=== PATIENT | female | born 2000 | race African-American/Black ===

== ENCOUNTER 2024-08-14 01:16 | Day surgery (SDC) | payer OTHER, MEDICAID, SELFPAY ==
[2024-08-05 15:11] VITALS: BMI 48.0
--- NOTE | 2024-08-05 15:26 | PC.NURSE ---
Report to the Outpatient Waiting Room, entrance under the green pavilion located off [facility], at time _0830AM on date __08/14/24 . Planned Procedure Time: _1030AM .? Time changes happen often and if your time is changed the preop area will call you the afternoon before. - You and your visitor will be asked to self-screen and do not enter if you have any COVID symptoms. Please call surgeon if you need to reschedule. - A mask is optional within the hospital at this time. NOTHING TO EAT OR DRINK FOR 8 HR PRIOR TO SURGERY -No smoking, or chewing tobacco (or any form of nicotine). No chewing gum, candy or mints. Take only the following medications with a SIP of water on the morning of surgery: _NONE DO NOT STOP ANY OF YOUR OTHER PRESCRIPTION MEDICATIONS PRIOR TO SURGERY EXCEPT THE FOLLOWING Hold all vitamins and supplements for 3 days per anesthesiologist. Medications to discontinue per physician VIT D Date to take last dose__08/11/24 Please no make-up, nail latvian, hairspray, perfume, deodorant, or body powder the day of surgery.? No jewelry (including any body piercings) or valuables the day of surgery, leave them at home.? Please take a shower or bath the night before, or the morning of, surgery with an antibacterial soap.? Wear comfortable, loose fitting clothing.? - Jewelry must be removed prior to entering the operating room.? Rings and piercings that are not removed may be cut off. - The hospital will not accept responsibility for valuables.? - Please leave all valuables, including medications, at home the day of surgery. If you are going home after surgery, a licensed [employer] hazmat company driver must drive you home.? - NO public transportation without another adult if you receive anesthesia. - We recommend that an adult stay with you for 24 hours following discharge. - We also recommend that you do not drive, make important decision, drink alcoholic beverages, or take any drugs that were not prescribed by your health care provider for at least 24 hours after your discharge time. Follow any additional instructions given to you from your surgeon. Telephone instructions given to __TARSHA and asked if any additional questions and then verbalized understanding. Patient advised to call surgeon office or pre surgery nurse liaison [phone] if any additional questions.
[2024-08-14] VITALS (14 sets, daily range): BP systolic 131–157; BP diastolic 71–116; PULSE 86–104; RESP 13–27; TEMP 36.2–36.7; O2SAT 94–100
--- OUTSIDE RECORDS SUMMARY | 2024-08-14 01:21 | XMS_ITS | Referral Summary ---
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 Gender Identity Not on file Sexual Orientation Not on file Last Filed Vital Signs Vital Sign Reading Time Taken Comments Blood Pressure 120/60 11/23/2018 3:21 PM CDT Pulse 85 11/23/2018 3:21 PM CDT Temperature 36.3 C (97.4 F) 11/23/2018 3:21 PM CDT Respiratory Rate - - Oxygen Saturation 98% 11/23/2018 3:21 PM CDT Inhaled Oxygen Concentration - - Weight 108.9 kg (240 lb) 11/23/2018 3:21 PM CDT Height 160 cm (5' 3) 11/23/2018 3:21 PM CDT Body Mass Index 42.51 11/23/2018 3:21 PM CDT Plan of Treatment Not on file Insurance [facility] CHOICE [facility]US [facility] H[facility]PPO Address: [address] [address] Care Teams Paper Sample Clerk Relationship Specialty Start Date End Date Efren Baugh DO [address] [place] [address] PCP - General Family Medicine 07/23/24 Alonso [place] MD [address] [place] [address] Water Chemist Obstetrics and Gynecology 07/23/24
--- OUTSIDE RECORDS SUMMARY | 2024-08-14 01:21 | XMS_ITS | Clinical Summary ---
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 Gender Identity Not on file Sexual Orientation Not on file Plan of Treatment Health Maintenance Due Date Last Done Comments Hepatitis C Virus (HCV) Screening 1998 Human Papillomavirus (HPV) Immunization (2 - 2-dose series) 04/15/2010 10/13/2009 Pap Smear 2019 Influenza Immunization (#1) 2023 02/06/2020 SARS-COV-2 Immunization ( season) 2023 Respiratory Syncytial Virus (RSV) Immunization (Adult) (1 - 1-dose 75+ series) 2073 Hepatitis B Immunization Completed 999, 1998, 1998 DTaP/Tdap/Td Immunization Discontinued 2010, 10/13/2009, 10/15/2003, Additional history exists TdaP Immunization Completed 10/14/2010, 10/13/2009 Meningococcal Immunization (ACWY) Completed 10/08/2015, 10/14/2010, 10/13/2009 Pneumococcal Immunization Combined Aged Out No longer eligible based on patient's age to complete this topic Rotavirus Immunization Aged Out No lo nger eligible based on patient's age to complete this topic
--- OUTSIDE RECORDS SUMMARY | 2024-08-14 01:21 | XMS_ITS | Clinical Summary ---
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 Gender Identity Not on file Sexual Orientation [...] 11/23/2018 3:21 PM CDT Plan of Treatment Health Maintenance Due Date Last Done Comments Cervical Cancer Screening 1998 Depression Screening 1998 Hepatitis C Screening 1998 DTaP/Tdap/Td Vaccine (1 - Tdap) 2009 Varicella Vaccines (1 of 2 - 13+ 2-dose series) 2011 HPV Vaccines (1 - 3-dose series) 2013 Hepatitis B Screening 2016 Regular Well Visit/Exam 18-64 2016 Influenza Vaccine (Season Ended) 2024 Pneumococcal vaccine <65 Aged Out No longer eligible based on patient's age to complete this topic Insurance [facility] CHOICE PLUS Care Teams Optimization Manager Relationship Specialty Start Date End Date AmauriEfren DO Mo [address] [place] [address] PCP - General Family Medicine 07/23/24 Alonso [place] MD [address] [place] [address] Environmental Services Attendant Obstetrics and Gynecology 07/23/24
--- OUTSIDE RECORDS SUMMARY | 2024-08-14 01:21 | XMS_ITS | Data Portability ---
Author Organization [facility] SILaila Newby Address [address] [place] [address] Assessment No assessment recorded. Plan of Treatment Reminders Order Date Submit Date Provider Last Modified By Organization Details Last Modified Time Details Appointments None recorded. Lab CMP, serum or plasma 017 [facility], [address] [place] [address], [address], [place], [address], 7 12:20:27 thyroid panel, serum 017 [facility], [address] [facility], [address], [place], [address], 7 08:29:57 HbA1c (hemoglob in A1c), blood 017 [facility], [address] [place] [address], [address], [place], [address], 7 08:29:57 CBC w/ auto diff 017 [facility], [address] [place] [address], [address], [place], [address], 7 12:21:49 lipid panel, serum 017 [facility], [address] [place] [address], [address], [place], [address], 7 08:29:56 Referral None recorded. Procedures None recorded. Surgeries None recorded. Imaging None recorded. Medication Orders None recorded. Patient TargetsNo targets recorded. Patient Instructions Encounter Date Encounter Id Patient Instructions Last Modified By Organization Details Last Modified Time 04/24/2015 [id number] Routine sports physical, no restrictions or limitations. Discussed diet and exercise. Not available 04/24/2015 16:40:07 10/08/2015 [id number] Provided MCV4 vaccine. [email or web address] Not av ailable 10/08/2015 15:12:55 07/13/2016 [id number] when your child IS overweight: care instructions efarinas Not available 07/13/2016 11:01:37 your child WHO I S overweight: care instructions efarinas Not available 07/13/2016 11:01:[address] scan of the abdomen, I discussed with patient and her mother that she needs to see lead painter for further evaluation. Plan to refer patient to GE specialist of choice. Diet modicication and exercise advised. efarinas Not available 07/13/2016 11:02:19 Reason for Referral None Reported. Results Created Date Observation Date Name Description Value Unit Range Abnormal Flag Note LastModifiedBy Organization Detail LastModifiedTime 07/19/19 17 07/19/2016 CBC w/ auto diff WBC 9.5 x10e3 /uL 3.4-10 .8 Not Available [facility] ([facility]) [address] [facility], [place], [address], 07/19/2016 08:29:55 07/19/1907/19/2016 CBC w/ auto diff RBC 4.37 x10e6 /uL 3.77-5 .28 Not Available [facility] ([facility]) [address] [facility], [place], [address], 07/19/2016 08:29:55 07/19/1907/19/2016 CBC w/ auto diff hemoglobin 11.5 g/dL 11.1-1 5.9 Not Available [facility] ([facility]) [address] [place], [address], 07/19/2016 08:29:55 07/19/19 17 07/19/2016 CBC w/ auto diff hematocrit 36.7 % 34.0-4 6.6 Not Available [facility] ([facility]) [address] [place], [address], 07/19/2016 08:29:55 07/19/19 17 07/19/2016 CBC w/ auto diff MCV 84 fL 79-97 Not Available [facility] ([facility]) [address] [place], [address], 07/19/2016 08:29:55 07/19/19 17 07/19/2016 CBC w/ auto diff MCH 26.3 pg 26.6-3 3.0 below low normal Not Available [facility] ([facility]) [address] [facility], [place], [address], 07/19/2016 08:29:55 07/19/19 17 07/19/2016 CBC w/ auto diff MCHC 31.3 g/dL 31.5-3 5.7 below low normal Not Available [facility] ([facility]) [address] [place], [address], 07/19/2016 08:29:55 07/19/19 17 07/19/2016 CBC w/ auto diff RDW 13.9 % 12.3-1 5.4 Not Available [facility] ([facility]) [address] [place], [address], 07/19/2016 08:29:55 07/19/19 17 07/19/2016 CBC w/ auto diff platelets 335 x10e3 /uL 150-37 9 Not Available [facility] ([facility]) [address] [place], [address], 07/19/2016 08:29:55 07/19/19 17 07/19/2016 CBC w/ auto diff neutrophils 53 % Not Available [facility] [address] [place], [address], 07/19/2016 08:29:55 07/19/19 17 07/19/2016 CBC w/ auto diff lymphs 35 % Not Available [facility] ([facility]) [address] [place], [address], 07/19/2016 08:29:55 07/19/19 17 07/19/2016 CBC w/ auto diff monocytes 10 % Not Available [facility] ([facility]) [address] [place], [address], 07/19/2016 08:29:55 07/19/19 17 07/19/2016 CBC w/ auto diff eos 2 % Not Available [facility] ([facility]) [address] [place], [address], 07/19/2016 08:29:55 07/19/19 17 07/19/2016 CBC w/ auto diff basos 0 % Not Available [facility] ([facility]) [address] [place], [address], 07/19/2016 08:29:55 07/19/19 17 07/19/2016 CBC w/ auto diff immature cells RETAIL GREETER Not Available [facility] [address] [place], [address], 07/19/2016 08:29:55 07/19/19 17 07/19/2016 CBC w/ auto diff neutrophils (absolute) 5.0 x10e3 /uL 1.4-7. 0 Not Available [facility] ([facility]) [address] [place], [address], 07/19/2016 08:29:55 07/19/19 17 07/19/2016 CBC w/ auto diff lymphs (absolute) 3.3 x10e3 /uL 0.7-3. 1 above high normal Not Available [facility] ([facility]) [address] [place], [address], 07/19/2016 08:29:55 07/19/19 17 07/19/2016 CBC w/ auto diff monocytes(ab solute) 0.9 x10e3 /uL 0.1-0. 9 Not Available [facility] ([facility]) [address] [place], [address], 07/19/2016 08:29:55 07/19/19 17 07/19/2016 CBC w/ auto diff eos (absolute) 0.2 x10e3 /uL 0.0-0. 4 Not Available [facility] ([facility]) [address] [facility], [place], [address], 07/19/2016 08:29:55 07/19/19 17 07/19/2016 CBC w/ auto diff baso (absolute) 0.0 x10e3 /uL 0.0-0. 2 Not Available [facility] ([facility]) [address] [facility], [place], [address], 07/19/2016 08:29:55 07/19/19 17 07/19/2016 CBC w/ auto diff immature granulocytes 0 % Not Available [facility] [address] [place], [address], 07/19/2016 08:29:55 07/19/19 17 07/19/2016 CBC w/ auto diff immature grans (abs) 0.0 x10e3 /uL 0.0-0. 1 Not Available [facility] ([facility]) [address] [place], [address], 07/19/2016 08:29:55 07/19/19 17 07/19/2016 CBC w/ auto diff NRBC RETAIL GREETER Not Available [facility] ([facility]) [address] [place], [address], 07/19/2016 08:29:55 07/19/19 17 07/19/2016 CBC w/ auto diff hematology comments: RETAIL GREETER Not Available [facility] ([facility] [address] [place], [address], 07/19/2016 08:29:55 07/19/19 17 07/19/2016 CMP, serum or plasm a glucose, serum 79 mg/dL 65-99 Not Available [facility] [address] [place], [address], 07/19/2016 08:29:56 07/19/19 17 07/19/2016 CMP, serum or plasm a BUN 11 mg/dL 6-20 Not Available [facility] ([facility]) [address] [place], [address], 07/19/2016 08:29:56 07/19/19 17 07/19/2016 CMP, serum or plasm a creatinine, serum 0.72 mg/dL 0.57-1 .00 Not Available [facility] ([facility]) [address] [place], [address], 07/19/2016 08:29:56 07/19/19 17 07/19/2016 CMP, serum or plasm a eGFR if nonafricn AM 123 mL/mi n/1.7 3 >59 Not Available [facility] ([facility]) [address] [place], [address], 07/19/2016 08:29:56 07/19/19 17 07/19/2016 CMP, serum or plasm a eGFR if africn AM 141 mL/mi n/1.7 3 >59 Not Available [facility] ([facility]) [address] [place], [address], 07/19/2016 08:29:56 07/19/19 17 07/19/2016 CMP, serum or plasm a BUN/creatini ne ratio 15 9-23 Not Available [facility] [address] [place], [address], 07/19/2016 08:29:56 07/19/19 17 07/19/2016 CMP, serum or plasm a sodium, serum 141 mmol/ L 134-14 4 Not Available [facility] [address] [place], [address], 07/19/2016 08:29:56 07/19/1907/19/2016 CMP, serum or plasm a potassium, serum 4.5 mmol/ L 3.5-5. 2 Not Available [facility] ([facility] [address] [place], [address], 07/19/2016 08:29:56 07/19/1907/19/2016 CMP, serum or plasm a chloride, serum 102 mmol/ L 96-106 Not Available [facility] [address] [place], [address], 07/19/2016 08:29:56 07/19/1907/19/2016 CMP, serum or plasm a calcium, serum 9.6 mg/dL 8.7-10 .2 Not Available [facility] ([facility]) [address] [place], [address], 07/19/2016 08:29:56 07/19/1907/19/2016 CMP, serum or plasm a protein, total, serum 7.4 g/dL 6.0-8. 5 Not Available [facility] ([facility] [address] [place], [address], 07/19/2016 08:29:56 07/19/1907/19/2016 CMP, serum or plasm a albumin, serum 4.4 g/dL 3.5-5. 5 Not Available [facility] ([facility]) [address] [place], [address], 07/19/2016 08:29:56 07/19/1907/19/2016 CMP, serum or plasm a globulin, total 3.0 g/dL 1.5-4. 5 Not Available [facility] ([facility]) [address] [place], [address], 07/19/2016 08:29:56 07/19/19 17 07/19/2016 CMP, serum or plasm a A/G ratio 1.5 1.2-2. 2 Not Available [facility] ([facility]) [address] [place], [address], 07/19/2016 08:29:56 07/19/19 17 07/19/2016 CMP, serum or plasm a bilirubin, total <0.2 mg/dL 0.0-1. 2 Not Available [facility] ([facility]) [address] [place], [address], 07/19/2016 08:29:56 07/19/19 17 07/19/2016 CMP, serum or plasm a alkaline phosphatase, S 68 IU/L 43-101 Not Available [facility] [address] [place], [address], 07/19/2016 08:29:56 07/19/19 17 07/19/2016 CMP, serum or plasm a AST (SGOT) 15 IU/L 0-40 Not Available [facility] [address] [place], [address], 07/19/2016 08:29:56 07/19/19 17 07/19/2016 lipid panel , serum cholesterol, total 201 mg/dL 100-16 9 above high normal Not Available [facility] ([facility] [address] [place], [address], 07/19/2016 08:29:56 07/19/19 17 07/19/2016 lipid panel , serum triglyceride s 217 mg/dL 0-89 above high normal Not Available [facility] ([facility]) [address] [place], [address], 07/19/2016 08:29:56 07/19/19 17 07/19/2016 lipid panel , serum HDL cholesterol 49 mg/dL >39 Not Available [facility] [address] [place], [address], 07/19/2016 08:29:56 07/19/19 17 07/19/2016 lipid panel , serum VLDL cholesterol cheryl 43 mg/dL 5-40 above high normal Not Available [facility] ([facility]) [address] [place], [address], 07/19/2016 08:29:56 07/19/19 17 07/19/2016 lipid panel , serum LDL cholesterol calc 109 mg/dL 0-109 Not Available [facility] [address] [place], [address], 07/19/2016 08:29:56 07/19/19 17 07/19/2016 lipid panel , serum comment: RETAIL GREETER Not Available [facility] ([facility]) [address] [place], [address], 07/19/2016 08:29:56 07/19/19 17 07/19/2016 thyro id panel , serum TSH 1.030 uIU/m L 0.450- 4.500 Not Available [facility] ([facility]) [address] [place], [address], 07/19/2016 08:29:57 07/19/19 17 07/19/2016 thyro id panel , serum thyroxine (T4) 7.9 ug/dL 4.5-12 .0 Not Available [facility] ([facility]) [address] [place], [address], 07/19/2016 08:29:57 07/19/19 17 07/19/2016 thyro id panel , serum T3 uptake 31 % 23-35 Not Available [facility] ([facility]) [address] [place], [address], 07/19/2016 08:29:57 07/19/19 17 07/19/2016 thyro id panel , serum free thyroxine index 2.4 1.2-4. 9 Not Available [facility] ([facility]) [address] [facility] [place], [address], 07/19/2016 08:29:57 07/19/19 17 07/19/2016 HbA1c (hemo globi n A1c), blood hemoglobin A1C 5.6 % 4.8-5. 6 PRE-D IABET ES: 5.7 - 6.4 DIABE TYLOR: >6.4 GLYCE MADDISON CONTR OL FOR ADULT S WITH DIABE TYLOR: <7.0 Not Available [facility] ([facility]) [address] [facility], [place], [address], 07/19/2016 08:29:57 05/31/19 17 05/30/2016 imagi ng/reinaldo red tic resul t No observ ation record ed. [facility] [address] [facility], [place], [address], 07/13/2016 10:40:44 Result Notes None recorded. Problems No Known Problems Medical Equipment None Reported. Allergies No known drug allergies Medications Name Sig Start Date Stop Date Status Note LastModified by Organization Details LastModified Time oxybutynin chloride ER 10 mg tablet,exte nded release 24 hr TAKE 1 TABLET BY MOUTH EVERY DAY active Not Available Not Available No t Available dicyclomine 20 mg tablet 07/13 completed Not Available Not Available Not Available albuterol sulfate HFA 90 mcg/actuati on aerosol inhaler TAKE 2 PUFFS BY MOUTH EVERY 6 HOURS NEEDED active Not Available Not Available No t Available ondansetron 4 mg disintegrat ing tablet TAKE 1 TABLET BY MOUTH EVERY 8 HOURS NEEDED FOR NAUSEA active Not Available Not Available No t Available nitrofurant oin monohydrate /macrocryst als 100 mg capsule active Not Available Not Available Not Available ID NOW COVID-19 Test Kit DIRECTED active Not Available Not Available No t Available COVID-19 test specimen collection DIRECTED active Not Available Not Available No t Available Vitals Date Recorded Heart rate Oxygen saturation Oxygen saturation in Arterial blood by Pulse oximetry Body height Body mass index (BMI) Body weight Body temperature Systolic blood pressure Diastolic blood pressure Provider Name and Address Organization Details Last Updated DateTime 6 89 /min 99 % 99 % 161.925 cm 43.1 kg/m2 577054. 44099 g 98.1 [degF] 116 mm[Hg] 70 mm[Hg] Maribel Garza [facility] 6 16:29:15 Date Recorded Systolic blood pressure Diastolic blood pressure Provider Name and Address Organization Details Last Updated DateTime 07/13/2016 122 mm[Hg] 80 mm[Hg] Santosh Dey MD Attn: [facility] [place], [address], [facility] 07/13/2016 10:51:56 Date Recorded Body height Body weight Body mass index (BMI) Heart rate Respiratory rate Body temperature Provider Name and Address Organization Details Last Updated DateTime 7 162.56 cm 637259. 45 g 43.8 kg/m2 96 /min 13 /min 98.5 [degF] Aranza Arias MA [facility] 7 10:26:29 Date Recorded Body height Heart rate Body mass index (BMI) Body weight Body temperature Systolic blood pressure Diastolic blood pressure Provider Name and Address Organization Details Last Updated DateTime 6 162.56 cm 82 /min 43.4 kg/m2 705234. 983914 g 98 [degF] 108 mm[Hg] 78 mm[Hg] Tatiana Chávez MA [facility] 6 14:51:17 Social History Question Answer Notes LastModified by Organizat ion Details LastModified Time Tobacco Smoking Status Never Smoker Maribel ware, [facility] 04/24/2015 16:29:15 Animal Exposure? Yes Information not available 07/13/2016 What Is Your Level Of Caffeine Consumption? Moderate Information not available 07/13/2016 What Type Of Diet Are You Following? REGULAR Information not available 07/13/2016 Have There Been Any Changes To Your Family Or Social Situation? No Information not available 07/13/2016 Are There Any Guns Present In Your Home? No Information not available 07/13/2016 What Is Your Home Situation? Both Parents Information not available 07/13/2016 Car Seat Type Or Seat Belt? Seat Belt Information not available 07/13/2016 Parent Involvement? Both Parents Involved Information not available 07/13/2016 What Is Your Parents' Marital Status? Information not available 07/13/2016 Do You Have Any Siblings? 4 Information not available 07/13/2016 Do You Have Smoke And Carbon Monoxide Detectors In Your Home? Yes Information not available 07/13/2016 Are You Passively Exposed To Smoke? No Information not available 07/13/2016 Sex: Unknown Functional Status None recorded. Mental Status None recorded. Family History Relationship Description Onset Age of this Age Resolved Age Notes LastModified by Organization Details LastModified Time Maternal Grandfather Hypertensive disorder Not available 2016 10:27:52 Maternal Grandfather Diabetes mellitus Not available 2016 10:28:05 Medical History Condition Response Blood Diseases N Ear or Hearing Problems N Thyroid Problems N Depression N Developmental or Behavioral Disorders N Skin Problems N Premature N Anemia N Constipation N Diabetes N Anxiety Disorder N Muscle, Joint, or Bone Problems N Bedwetting N Vision or Eye Problems N Seizures/Epilepsy N Heart Problems/Murmur N Head Injury/Concussion N Cancer N Allergies N Asthma N ADHD N Bladder or Kidney Problems N Headaches N Chicken Pox N Autism Spectrum Disorder (ASD) N Gynecological History Statement/Question Response LMP Obstetrics History GPAL:G 0 P 0 0 0 0 Immunizations Vaccine Type Date Status Note Provider Nam e and Address Organization Details Recorded Time meningococcal MCV4P 6 completed Not Available [facility] 03/16/2019 02:50:26 DTP 4 completed Not Available [facility] 10/21/2020 10:14:25 DTP 9 completed Not Available [facility] 10/21/2020 10:14:25 DTP 2 completed Not Available [facility] 10/21/2020 10:14:25 DTP 9 completed Not Available [facility] 10/21/2020 10:14:24 DTP 0 completed Not Available [facility] 10/21/2020 10:14:25 Hib, unspecified formulation 9 completed Not Available [facility] 10/21/2020 10:14:25 Hib, unspecified formulation 9 completed Not Available [facility] 10/21/2020 10:14:25 Hib, unspecified formulation 0 completed Not Available [facility] 10/21/2020 10:14:25 Hep A, ped/adol, 2 dose 9 completed Not Available [facility] 10/21/2020 10:14:25 Hep A, ped/adol, 2 dose 8 completed Not Available [facility] 10/21/2020 10:14:25 Hep B, unspecified formulation 9 completed Not Available [facility] 10/21/2020 10:14:25 Hep B, unspecified formulation 9 completed Not Available [facility] 10/21/2020 10:14:25 Hep B, unspecified formulation 9 completed Not Available [facility] 10/21/2020 10:14:25 HPV, unspecified formulation 0 completed Not Available [facility] 10/21/2020 10:14:25 MMR 4 completed Not Available [facility] 10/21/2020 10:14:25 MMR 0 completed Not Available [facility] 10/21/2020 10:14:25 polio, unspecified formulation 9 completed Not Available [facility] 10/21/2020 10:14:25 polio, unspecified formulation 4 completed Not Available [facility] 10/21/2020 10:14:25 polio, unspecified formulation 9 completed Not Available [facility] 10/21/2020 10:14:25 polio, unspecified formulation 0 completed Not Available [facility] 10/21/2020 10:14:25 varicella 8 completed Not Available [facility] 10/21/2020 10:14:25 varicella 0 completed Not Available [facility] 10/21/2020 10:14:25 Tdap 0 completed Not Available [facility] 10/21/2020 10:14:24 Tdap 1 completed Not Available [facility] 10/21/2020 10:14:25 meningococcal ACWY, unspecified formulation 1 completed Not Available [facility] 10/21/2020 10:14:25 meningococcal ACWY, unspecified formulation 0 completed Not Available [facility] 10/21/2020 10:14:25 Past Encounters Encounter ID Performer Location Encounter Start Date Encounter Closed Date Diagnosis/Indication Diagnosis SNOMED-CT Code Diagnosis ICD10 Code Diagnosis Note [id number] Myles Nugent PA-C [facility] [address] [place] [address] 04/24/2015 16:18:17 04/24/2015 16:40:35 History and physical examination, sports participation 253233744 Z02.5 [id number] Myles Nugent PA-C [facility] [address] [place] [address] 10/08/2015 14:39:54 10/08/2015 15:45:16 Active or passive immunization 260353635 Z23 [id number] Santosh Dey MD [facility] [address] [place] [address] 07/13/2016 10:13:24 07/29/2016 17:01:37 Laboratory test result abnormal 418967879 R89.9 Morbid obesity 085642486 E66.01 Advised dietary management and exercise. Health Concerns Section Related Observation LastModified by Organization Detai ls LastModified Time None Recorded Concern Status LastModified by Organization Details LastModified Time None Recorded Advance Directives Directive None Recorded Payers Insurance Date Sequence Insurance Name Policy Number Policy Liu Covered Member ID Liu Member ID Guarantor Name 10/16/2020 2 [facility] ON OR AFTER 08/27/20 (MEDICAID REPLACEMENT - HMO) Taylor Angelo [id number] Tracie Garibay 10/16/2020 1 [facility] PRIOR TO 08/27/2020 (MEDICAID REPLACEMENT - HMO) Taylor Angelo [id number] Tracie Garbiay Notes Date Note Type Note Provider Name and Address Organization Details Recorded Time 04/24/2015 text/html Sports physical. Myles rojas PA-C Attn: [facility] [place], [address], [facility] 04/24/2015 16:40:20 10/08/2015 text/html Visit for MCV4 vaccine. Myles Nugent PA-C Attn: [address] [place], [address], [facility] 10/08/2015 16:09:39 07/13/2016 text/html Here for follow up of abdominal pain (no longer present this visit). CT scan of the abdomen shows some abnormal findings. Santosh Dey MD Attn: [address] [place], [address], [facility] 07/13/2016 11:08:35 OBGyn Episode No OBEpisode recorded.
[2024-08-14] MEDS: LACTATED RINGERS 1,000 ML 30 ML IV CONT ×2 (06:45→10:54)
--- NOTE | 2024-08-14 06:48 | WPDHPUPDATE1 ---
History and Physical Update Update Date/Time: 08/14/24 06:48 Patient seen and examined in pre-operative holding area. No interval change in medical history or symptoms. Patient remembers previous discussion of benefits and alternatives to procedure. Continues to desire to proceed with bilateral breast reduction . I reviewed the risks including but not limited to bleeding ,infection, asymmetry, undesireable cosmetic appearance, partial/total skin/nipple loss, no change or worsening of symptoms, change in sensation. I discussed the possible use of assistants and their level of participation in the case. Patient stated understanding and signed the consent form wishing to proceed
--- NOTE | 2024-08-14 06:52 | P.HP_ITS ---
History of Present Illness History of Present Illness Chief complaint: Hypertrophy of Gregorio Breast Narrative: Patient seen and examined in pre-operative holding area. No interval change in medical history or symptoms. Patient remembers previous discussion of benefits and alternatives to procedure. Continues to desire to proceed with bilateral breast reduction . I reviewed the risks including but not limited to bleeding ,infection, asymmetry, undesireable cosmetic appearance, partial/total skin/nipple loss, no change or worsening of symptoms, change in sensation. I discussed the possible use of assistants and their level of participation in the case. Patient stated understanding and signed the consent form wishing to proceed Review of Systems Review of Systems: All systems reviewed & are unremarkable except as noted in HPI and below PMFSH Social History Social History Smoking status: Never smoker Alcohol intake: never Substance use: never Substance use type: does not use Meds Home Medications and Allergies Home Medications ?Medication ?Instructions ?Recorded ?Confirmed ?Type cholecalciferol (vitamin D3) 50 2,000 unit PO DAILY 08/05/24 08/05/24 History mcg (2,000 unit) capsule (Vitamin D3) Allergies Allergy/AdvReac Type Severity Reaction Status Date / Time No Known Allergies Allergy Verified 08/05/24 15:25 Exam Narrative: unchanged Assessment and Plan Assessment and plan (1) Large breasts: Code(s): N62 - Hypertrophy of breast Status: Acute Assessment and Plan: cont as above
--- NOTE | 2024-08-14 06:53 | P.OP_ITS ---
Procedure Note - Detailed Date of Procedure 08/14/24 Pre-op Diagnosis Hypertrophy of Gregorio Breast Post-op Diagnosis Same Procedure Performed b/l breast reduction Surgeon Abisai Gonzalez MD [employer] michele prajapati pa-c Anesthesia General Description of Procedure The patient was seen in the preoperative holding area and the breasts were marked for an inferior pedicle Henry pattern reduction and a consent form was signed. Patient was taken back to the operating room and placed on the table in the supine position. Time-out was performed with Anesthesia, surgeon, and staff agreeing on patient's name, site, and surgery to be performed. SCDs were placed on the lower extremities and inflated. Antibiotics were given IV. After general anesthesia was administered the breasts were prepped and draped in the usual sterile fashion. I took my attention to the right breast where I used a saline moistened lap pad and Crispin clamp to create a breast tourniquet. 38 mm nipple Sizer was used to circumscribe the nipple-areolar complex. I proceeded with de epithelializing an 8 cm wide inferior pedicle. I made my other skin incision with 15 blade scalpel through skin and dermis. Bovie cautery was then used to elevate the superior skin flaps and Jm's plane down to the chest wall. I proceeded with resection of 990 g of tissue from the right breast with Bovie cautery. I plicated the pedicle with 2-0 Vicryl suture. I irrigated with normal saline and hemostasis with Bovie cautery. 2-0 Prolene was used to secure the T-junction. 3-0 Vicryl was used for dermal closure. The nipple was brought out 5.5 cm above the inframammary fold at the most prominent portion of the breast at the breast midline and secured with 3-0 Vicryl suture for dermis. 4-0 Monocryl was used for subcuticular closure. The nipple appeared viable with good cap refill. Turned my attention to the left breast where the same procedure was performed. I used a nipple Sizer de epithelializing as 8 cm wide inferior pedicle. I made my other skin incisions and used Bovie cautery to elevate skin flaps and Jm's plane down to the chest wall. I proceeded with resection of 784g of tissue from the smaller less dense left breast which appeared to be reasonably symmetric to the reduced right breast. I irrigated with normal saline. Hemostasis with Bovie cautery. I plicated the pedicle with 2-0 Vicryl suture. 2-0 Prolene was used to secure the T-junction. 3-0 Vicryl was used for dermal closure. The nipple was brought out 5.5 cm above the inframammary fold at the most prominent portion of the breast at the breast midline and secured with 3-0 Vicryl suture. 4-0 Monocryl was used for subcuticular closure. The nipple appeared viable with good cap refill and the breasts appeared symmetric in appearance. I injected 20 cc of 1% lidocaine with epinephrine and 0.5% Marcaine plain along the inframammary fold and anterior axillary line of each breast. A dressing of Mastisol, Steri-Strips, 4 x 4, ABDs and a surgical bra was applied. The patient was awakened from anesthesia and transferred to the recovery room in stable condition. Complications: None Estimated blood loss: 50 cc Disposition: Patient tolerated the procedure well and will be going home later today Michele Prajapati PA-C was essential for positioning, retraction, closure and dressing placement [facility] [place] - Charge Forward: Surgery Billing ([id number] same for michele garza )
[2024-08-14 07:41] LABS: BEDSIDEPREGUCG Negative (Negative)
--- NOTE | 2024-08-14 07:51 | WPDANESEPPF ---
Anes - Initial Pre Proc Eval Procedure: Operation Date: 08/14/24 08:30 Proposed Procedures p Bilateral Breast Reduction - Abisai Gonzalez MD Date/Time: 08/14/24 07:51 Surgeon: Abisai Gonzalez MD Pre Op Diagnosis: Hypertrophy of Gregorio Breast Patient Data Age: 24 Gender: F Height: 1.63 m Weight: 131.8 kg Last Vital Signs Temp 98.0 F 08/14/24 07:00 Pulse 86 08/14/24 07:00 Resp 16 08/14/24 07:00 BP 131/87 08/14/24 07:00 Pulse Ox 100 08/14/24 07:00 O2 Del Method Room Air 08/14/24 07:00 Allergies Allergy/AdvReac Type Severity Reaction Status Date / Time No Known Allergies Allergy Verified 08/14/24 07:23 Home Medications ?Medication ?Instructions ?Recorded ?Confirmed ?Type cholecalciferol (vitamin D3) 50 2,000 unit PO DAILY 08/05/24 08/05/24 History mcg (2,000 unit) capsule (Vitamin D3) Laboratory Tests 08/14/24 07:00 POC Urine HCG, Qual Negative (Negative) Patient hx anesthesia problems: none Family hx anesthesia problems: none Results Review: All pre-operative results and documents have been reviewed as part of the pre-operative evaluation. [facility] Social History Social History (Reviewed 07/01/24 @ 10:21 by Kwaku Manning [facility]) Smoking status: Never smoker Alcohol intake: never Substance use: never Substance use type: does not use Anes - Eval Final PreProcedure Day of Procedure 08/14/24 07:51 Patient weight: super morbidly obese Airway: Mallampati scale class III ASA classification: III Anesthesia type and monitoring: general LMA and ETT and standard monitoring Results Review: All pre-operative results and documents have been reviewed as part of the pre-operative evaluation. Informed Consent: The patient's anesthetic plan and its attendant risks and benefits were discussed with the patient/family/POA. Questions were solicited and answers provided to the satisfaction of the patient/family/POA.
[2024-08-14] MEDS: SCOPOLAMINE 1 MG PATCH 1 PATCH TRANSDERM (08:07)
[2024-08-14] MEDS: ceFAZolin 3 GM/D5W 100 ML 100 ML IVPB (08:39)
--- NOTE | 2024-08-14 09:51 | S_PTH ---
PATIENT: Taylor Angelo LOC: [facility] U#:[id number] AGE/SX: 24/F ROOM: RE08/14/[address]: Abisai Gonzalez MD : 2000 BED: DIS: 08/14/2024 SPEC #: [id number] RECD: 08/14/24 11:23 STATUS: JM REQ #: [id number] PIYUSH: 08/14/24 09:[address]: Abisai Gonzalez DEPT: [facility] Surgical RECD BY: Yessy Nunez ENTERED: 08/14/24 11:24 SP TYPE: Surgical OTHR DR: Efren Baugh DO Tissues: A - Breast Reduction B - Breast Reduction Procedures: Hematoxylin and Eosin Stain Gross and Microscopic Level 4
[2024-08-14] MEDS: LIDO 1%/EPINEPHRINE 1:100,000 20 ML VIAL INFILTRATE (09:59)
[2024-08-14] MEDS: BUPivacaine HCL 0.5% PF 30 ML VIAL INFILTRATE (09:59)
[2024-08-14] MEDS: ONDANSETRON INJ 4 MG/2 ML VIAL IV PUSH (11:10)
[2024-08-14] MEDS: fentaNYL CITRATE INJ (*CRX) 100 MCG/2 ML VIAL 25 MCG IV PUSH ×4 (11:12→11:43)
[2024-08-14] MEDS: diphenhydrAMINE HCl INJ 50 MG/ML VIAL 12.5 MG IV PUSH (12:10)
[2024-08-14] MEDS: oxyCODONE HCL (*CRX) 5 MG TAB IR PO (12:56)
[2024-08-14] MEDS: ACETAMINOPHEN 500 MG TABLET 1000 MG PO (13:50)
[2024-08-14] MEDS: IBUPROFEN 400 MG TABLET 800 MG PO (13:50)
== END 2024-08-14 14:24 | disposition home or self-care (01) ==
PROVIDERS: PCP Family Medicine; Visit Provider Plastic Surgery
PROC: 0HBV0ZZ Excision of Bilateral Breast, Open Approach (ICD-10-PCS; CPT 19318; principal; 2024-08-14 08:30)
DX: N62 Hypertrophy of breast (principal); E66.01 Morbid (severe) obesity due to excess calories; Z68.42 Body mass index [BMI] 45.0-49.9, adult
CPT/HCPCS: 19318; 88305; A9270; J0690; J1100; J1171; J1200; J2003; J2004; J2250; J2405; J2704; J3010; J7120

== ENCOUNTER 2024-08-18 02:33 | Emergency (ER) | payer OTHER, MEDICAID, SELFPAY ==
[2024-08-18 02:39] VITALS: BP 131/67; PULSE 102; RESP 18; TEMP 36.8; O2SAT 96
[2024-08-18 02:48] VITALS: PULSE 95
--- NOTE | 2024-08-18 03:54 | ED_ITS ---
HPI - General Adult General Chief complaint: Unspecified Stated complaint: post op pain Time Seen by Provider: 08/18/24 02:41 History of Present Illness HPI narrative: Patient 24-year-old female who presents emergency department chief complaint of postsurgical pain. The patient reports that she had a breast reduction on the teaching done at our facility. Patient reports that her discomfort was more this evening and she was concerned there may have been some bleeding from the sites. Patient denies fever reports no redness Related Data Home Medications ?Medication ?Instructions ?Recorded ?Confirmed ?Last Taken ?Type cholecalciferol (vitamin D3) 50 2,000 unit PO DAILY 08/05/24 08/18/24 Unknown History mcg (2,000 unit) capsule (Vitamin D3) Allergies Allergy/AdvReac Type Severity Reaction Status Date / Time No Known Allergies Allergy Verified 08/18/24 02:48 Review of Systems Review of Systems: A 10 system review of systems was completed on the patient and is negative except for what is stated in the HPI. Nursing and ancillary documentation was reviewed. [facility] Social History Social History Smoking status: Never smoker Alcohol intake: never Substance use: never Substance use type: does not use Living arrangements: with family Spiritual care concerns: No Exam Narrative: GENERAL: Well-appearing, well-nourished, and in no acute distress. HEAD: Normocephalic, atraumatic. EYES: PERRLA and EOMI. ENT: Nares clear, no rhinorrhea or epistaxis. Mucous membranes moist. NECK: Supple. CHEST: Clear to auscultation. No respiratory distress. Incisions at the breast were examined with a nurse metal lather present the incisions are well approximated minimal dried blood well no purulent drainage no redness HEART: Regular rate and rhythm. No murmur heard. Normal peripheral pulses. ABDOMEN: Soft, nontender, nondistended, normal active bowel sounds. EXTREMITIES: Normal range of motion. No edema. SKIN: Warm, dry, no rash. NEURO: No focal deficits. Alert and oriented x3. PSYCH: Normal mood and affect. Course Vital Signs Vital signs: Vital Signs Temperature 36.8 C 08/18/24 02:39 Pulse Rate 102 H 08/18/24 02:39 Respiratory Rate 18 08/18/24 02:39 Blood Pressure 131/67 08/18/24 02:39 Pulse Oximetry 96 08/18/24 02:39 Oxygen Delivery Room Air 08/18/24 02:39 Temperature 36.8 C 08/18/24 02:39 Pulse Rate 95 08/18/24 02:48 Respiratory Rate 18 08/18/24 02:39 Blood Pressure 131/67 08/18/24 02:39 Pulse Oximetry 96 08/18/24 02:39 Oxygen Delivery Room Air 08/18/24 02:39 Medical Decision Making MDM Narrative Medical decision making narrative: Patient was feeling better in emergency department in shows to follow-up with her plastic surgeon. Vital Signs Vital Signs: Vital Signs Temperature 36.8 C 08/18/24 02:39 Pulse Rate 102 H 08/18/24 02:39 Respiratory Rate 18 08/18/24 02:39 Blood Pressure 131/67 08/18/24 02:39 Pulse Oximetry 96 08/18/24 02:39 Oxygen Delivery Room Air 08/18/24 02:39 Temperature 36.8 C 08/18/24 02:39 Pulse Rate 95 08/18/24 02:48 Respiratory Rate 18 08/18/24 02:39 Blood Pressure 131/67 08/18/24 02:39 Pulse Oximetry 96 08/18/24 02:39 Oxygen Delivery Room Air 08/18/24 02:39 Discharge Plan Discharge Clinical Impression: Post-operative pain, Visit for wound check Patient Disposition: Home Condition: Stable Instructions: Antibiotic Form, Pain Management After Surgery (DC) Additional Instructions: Please follow-up with your surgeon as soon as possible. If her symptoms worsen please return to the emergency department your exam was very reassuring. you may return to the emergency department your symptoms worsen Patient Language: Kiswahili Prescriptions: No Action cholecalciferol (vitamin D3) [Vitamin D3] 50 mcg (2,000 unit) capsule 2,000 unit PO DAILY cephalexin 500 mg capsule 500 mg PO Q8H Qty: 21 0RF hydrocodone-acetaminophen 5-325 mg tablet 1 tablet PO Q6H PRN (Reason: pain) Qty: 16 0RF Follow-up/Referrals: Efren Baugh DO [Primary Care Provider] - Time of Disposition: 03:55
[2024-08-18 03:58] VITALS: RESP 18
== END 2024-08-18 03:58 | disposition home or self-care (01) ==
PROVIDERS: Emergency Provider Emergency Medicine; PCP Family Medicine
DX: N64.4 Mastodynia (principal); G89.18 Other acute postprocedural pain
CPT/HCPCS: 99284

== ENCOUNTER 2024-08-29 13:40 | Outpatient (CLI) | payer OTHER, MEDICAID, SELFPAY ==
--- NOTE | ~2024-08-29 | US_ITS ---
Pelvic ultrasound. Clinical History: Abnormal findings of blood chemistry Technique: Realtime transvaginal scanning of the pelvis was performed. Color flow Doppler and Doppler spectral analysis were performed. Findings: The uterus is anteverted, and measures 5.7 x 1.9 x 4.2 cm. The endometrial stripe has a th ickness of 7 mm. No focal mass is identified. The right ovary measures 2.4 x 1.9 x 2.7 cm. No significant right ovarian or adnexal mass is seen. The left ovary measures 2.7 x 2.6 x 2.2 cm. No significant left ovarian or adnexal mass is seen. There is no evidence of free fluid in the cul de sac. Impression: No significant abnormality seen. Reviewed, dictated and finalized at [facility]. Impression: No significant abnormality seen.
== END 2024-08-29 13:41 | disposition home or self-care (01) ==
LOC: MICIMG 13:41
PROVIDERS: PCP Family Medicine; Visit Provider Family Medicine
DX: R79.89 Other specified abnormal findings of blood chemistry (principal); N92.6 Irregular menstruation, unspecified; L67.8 Other hair color and hair shaft abnormalities
CPT/HCPCS: 76830

== ENCOUNTER 2024-11-09 00:20 | Emergency (ER) | payer OTHER, MEDICAID, SELFPAY ==
[2024-11-09 00:21] VITALS: BP 122/70; PULSE 88; RESP 16; TEMP 36.4; O2SAT 99
[2024-11-09 01:52] VITALS: BP 133/85; PULSE 78; RESP 18; O2SAT 100
--- NOTE | 2024-11-09 01:57 | PC.NURSE ---
This RN moved pt into room 22 due to complaints of feeling like she was going to pass out. Pt moved to 22 and placed on pt monitor. This RN and aleta Roche attempted to do syncopal protocol work up. Pt refused all work up due to it is a waste of resources and I think it is just from the pain from my tooth. Pt states she wants to mainly focus on her tooth pain. This RN notified MD and propellant charge zone assembler. No new orders placed. 02:00- this RN heard pt vomiting in pt room. RN walked in and seen pt vomiting on the floor and crying she is in pain. This RN sent another RN to go notify propellant charge zone assembler and MD. No New Orders Placed. RN cleaned pt vomit up.
--- NOTE | 2024-11-09 03:32 | ED_ITS ---
HPI - Dental/Oral General Chief complaint: Syncope Stated complaint: wisdom teeth pain Time Seen by Provider: 11/09/24 03:25 History of Present Illness HPI Narrative: Patient is a 24-year-old female who presents emergency department this evening complaining of right lower wisdom teeth pain. States insect ongoing for the past few months but have worsened lately. Has an appointment with her dentist on December 03. States that she has been taking ibuprofen and Tylenol as needed for the pain at home with minimal to no relief. Denies any additional symptoms or concerns including any fevers or chills. Related Data Home Medications ?Medication ?Instructions ?Recorded ?Confirmed ?Last Taken ?Type cholecalciferol (vitamin D3) 50 2,000 unit PO DAILY 08/18/24 Unknown History mcg (2,000 unit) capsule (Vitamin D3) Allergies Allergy/AdvReac Type Severity Reaction Status Date / Time No Known Allergies Allergy Verified 08/18/24 02:48 Review of Systems Review of Systems: All systems are reviewed and are negative unless stated otherwise in the HPI. [facility] Social History Social History Smoking status: Never smoker Alcohol intake: never Substance use: never Substance use type: does not use Living arrangements: with family Spiritual care concerns: No Exam Narrative: General: Alert, awake, afebrile, in no acute distress. HEENT: PERRL, no rhinorrhea, no post nasal drip, oropharynx clear, no dental cavities or dental abscess noted. Neck: Trachea midline, no JVD, no lymphadenopathy. Cardiovascular: Regular rate and rhythm, no murmurs, rubs or gallops, no peripheral edema. Respiratory: Clear to auscultation bilaterally, no tachypnea, no wheezing, no rhonchi, no rubs, no respiratory distress. Abdomen: Soft, nontender, nondistended, no rebound, no guarding, no peritoneal signs. Musculoskeletal: No joint swelling or deformity, normal muscle tone. Skin: No rashes or petechia, no signs of infection. Psychiatric: Alert and oriented, normal behavior and judgment for situation. Neurological: Alert and oriented to person, place, and time. Follows all commands. No focal deficits, speech is clear and fluent. Course Vital Signs Vital signs: Vital Signs Temperature 97.6 F 11/09/24 00:21 Pulse Rate 88 11/09/24 00:21 Respiratory Rate 16 11/09/24 00:21 Blood Pressure 122/70 11/09/24 00:21 Pulse Oximetry 99 11/09/24 00:21 Oxygen Delivery Room Air 11/09/24 00:21 Temperature 97.6 F 11/09/24 00:21 Pulse Rate 78 11/09/24 01:52 Respiratory Rate 18 11/09/24 01:52 Blood Pressure 133/85 11/09/24 01:52 Pulse Oximetry 100 11/09/24 01:52 Oxygen Delivery Room Air 11/09/24 00:21 MDM - Dental/Oral MDM Narrative Medical decision making narrative: The patient was evaluated by myself in the emergency department. History is obtained from patient who is an independent historian and physical exam was performed. External medical records were reviewed at this time. Patient was administered an oral Homer 7.5-2325 mg. Differential diagnosis considerations include dental caries, dental abscess, wisdom teeth impaction. Comorbidities impacting this visit include none. I have evaluated and discussed social determinants of health with the patient that could potentially impact subsequent diagnosis and treatment plans. On repeat assessment of the patient, reevaluation revealed that the patient is doing well and is in no acute distress. Patient symptoms have improved since she arrived to our emergency department. Repeat vital signs were all reviewed and noted to be stable. Differential diagnosis and treatment plan were discussed with the patient at bedside. Patient agrees with discussion and after shared medical decision making agrees with discharge. All questions were answered to the patient's satisfaction. Patient will follow up with her dentist as scheduled for her upcoming appointment on December 03. Patient was provided with strict return precautions and instructed to return to the emergency department if any new or worsening symptoms develop. The patient was discharged in stable condition. Discharge Plan Discharge Clinical Impression: Pain, dental Patient Disposition: Home Condition: Improved Instructions: Antibiotic Form, Toothache (ED) Additional Instructions: Please follow up with your dentist as scheduled for your upcoming appointment. Take the prescribed medication as instructed return to ED if any new or worsening symptoms develop. Patient Language: Bruneian Prescriptions: New hydrocodone-acetaminophen 5-325 mg tablet 1 tablet PO Q8H PRN (Reason: pain) Qty: 10 0RF No Action cholecalciferol (vitamin D3) [Vitamin D3] 50 mcg (2,000 unit) capsule 2,000 unit PO DAILY cephalexin 500 mg capsule 500 mg PO Q8H Qty: 21 0RF hydrocodone-acetaminophen 5-325 mg tablet 1 tablet PO Q6H PRN (Reason: pain) Qty: 16 0RF Follow-up/Referrals: Efren Baugh DO [Primary Care Provider, Family Practice] - 3 Days Stand Alone Forms: Work/School Release IP Time of Disposition: 03:32
--- OUTSIDE RECORDS SUMMARY | 2024-11-09 03:35 | XMS_ITS | Clinical Summary ---
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
--- OUTSIDE RECORDS SUMMARY | 2024-11-09 03:35 | XMS_ITS | Clinical Summary ---
Author Organization [facility] Address [address] [place] [address] Care Team Providers Care Repairer General Name Role Phone Efren Baugh Primary Care Provider Alonso Roberts MD Unavailable Allergies No known active allergies Medications No known medications Active Problems No known active problems Encounters Date Type Department Care Team Description 09/20/2024 2:17 PM CDT - 09/20/2024 11:59 PM CDT Hospital Encounter [address] [address] Discharge Disposition: Discharge to home or self care 09/20/2024 Results Follow-Up [facility] Medicine Reproductive Endocrinology [address] [place] [phone] Susan Evans MD Vitamin D 25 hydroxy, CMV, IgG and IgM antibodies Blood 09/19/2024 2:23 PM CDT - 09/19/2024 11:59 PM CDT Hospital Encounter [address] [address] Fertility testing; Screening for thyroid disorder; Avitaminosis D; Encounter for blood typing; Screening examination for venereal disease Discharge Disposition: Discharge to home or self care 09/19/2024 10:21 AM CDT - 09/19/2024 11:59 PM CDT Hospital Encounter [address] [address] Screening examination for venereal disease Discharge Disposition: Discharge to home or self care 09/19/2024 9:40 AM CDT Ancillary Procedure [facility] Medicine Obstetrics and Gynecology [address] [place] [address] [address] [place] [phone] Female infertility 09/19/2024 9:30 AM CDT Clinical Support [facility] Reproductive Endocrinology Lab [address] [place] [phone] Fertility testing (Primary Dx); Screening for thyroid disorder; Screening examination for venereal disease; Avitaminosis D; Encounter for blood typing; Encounter of female for testing for genetic disease carrier status for procreative management 09/17/2024 2:14 PM CDT - 09/17/2024 11:59 PM CDT Hospital Encounter [address] [address] Discharge Disposition: Discharge to home or self care 09/16/2024 Telephone [facility] Reproductive Endocrinology [address] [place] [phone] Susan Evans MD MG/CD1 -/labs and US 09/16/2024 Orders Only [facility] Reproductive Endocrinology [address] [place] [phone] Susan Evans MD Female infertility (Primary Dx) 09/16/2024 Telephone [facility] Reproductive Endocrinology [address] [place] [phone] Susan Evans MD MG- CD 2 needs to schedule US per pt 09/03/2024 9:00 AM CDT Telemedicine [facility] Reproductive Endocrinology [address] [place] [address] [place] [phone] Susan Evans MD Encounter for procreative management from Last 3 Months Surgical History Surgery Date Site/Laterality Comments REDUCTION MAMMAPLASTY 02/28/2024 - 02/26/2025 Family History Medical History Relation Name Comments Hypertension Mother Thyroid disease Mother Relation Name Status Comments Mother Social History Tobacco Use Types Packs/Day Years Used Date Smoking Tobacco: Never Assessed Comments No Sex and Gender Information Value Date Recorded Sex Assigned at Not on file Legal Sex 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 Gender Identity Not on file Sexual Orientation Not on file Obstetrics History Para Term AB IAB SAB Ectopic Multiple Livin g Live Births 0 0 0 0 0 0 0 0 0 0 0 Last Filed Vital Signs Vital Sign Reading Time Taken Comments Blood Pressure 120/60 11/23/2018 3:21 PM CDT Pulse 85 11/23/2018 3:21 PM CDT Temperature 36.3 C (97.4 F) 11/23/2018 3:21 PM CDT Respiratory Rate - - Oxygen Saturation 98% 11/23/2018 3:21 PM CDT Inhaled Oxygen Concentration - - Weight 120.2 kg (265 lb) 09/03/2024 8:15 AM CDT Height 162.6 cm (5' 4) 09/03/2024 8:15 AM CDT Body Mass Index 45.49 09/03/2024 8:15 AM CDT Plan of Treatment Health Maintenance Due Date Last Done Comments Cervical Cancer Screening 1998 Depression Screening 1998 HPV Vaccines (2 - 2-dose series) 04/15/2010 10/13/2009 Regular Well Visit/Exam 18-64 2016 DTaP/Tdap/Td Vaccine (8 - Td or Tdap) 10/14/2020 10/14/2010, 10/13/2009, 10/15/2003, Additional history exists Covid-19 Vaccine ( season) 2024 12/15/2020, 10/07/2020 Influenza Vaccine (#1) 2024 12/15/2020, 2019 Hepatitis B Screening Completed 1998 , 1998, 1998, Additional history exists Varicella Vaccines Completed 08/23/2007, 09/28/1999 Hepatitis C Screening Completed 09/19/2024 Pneumococcal vaccine <65 Aged Out No longer eligible based on patient's age to complete this topic Procedures Procedure Name Priority Date/Time Associated Diagnosis Comments N. GONORRHOEAE/C. TRACHOMATIS AMPLIFICATION Routine 09/19/2024 4:08 PM CDT DIFFERENTIAL AUTO Routine 09/19/2024 10: 21 AM CDT Fertility testing CBC WITH AUTO DIFFERENTIAL Routine 09/19/2024 10:21 AM CDT Fertility testing VITAMIN D 25 HYDROXY Routine 09/19/2024 10:21 AM CDT Avitaminosis D HEPATITIS C ANTIBODY Routine 09/19/2024 10:21 AM CDT Screening examination for venereal disease HEPATITIS B SURFACE ANTIGEN Routine 09/19/2024 10:21 AM CDT Screening examination for venereal disease HIV 1/2 ANTIBODY PLUS P24 ANTIGEN Routine 09/19/2024 10:21 AM CDT Screening examination for venereal disease RPR Routine 09/19/2024 10:21 AM CDT Screening examination for venereal disease CMV, IGG AND IGM ANTIBODIES Routine 09/19/2024 10:21 AM CDT Fertility testing US PELVIS COMPLETE Schedule Routine, Read Routine (OP Routine) 09/19/2024 10:16 AM CDT Female infertility TYPE AND SCREEN Timed 09/19/2024 10:03 AM CDT Encounter for blood typing T4, FREE Routine 09/19/2024 10:03 AM CDT Screening for thyroid disorder TSH Routine 09/19/2024 10:03 AM CDT Screening for thyroid disorder ANTIMULLERIAN HORMONE (AMH) Routine 09/19/2024 10:03 AM CDT Fertility testing from Last 3 Months Results * N. gonorrhoeae/C. trachomatis Amplification Urine (09/19/2024 4:08 PM CDT) C. trachomatis Not Detected Not Detected [facility] N. gonorrhoeae Not Detected Not Detected [facility] Comment: Interpretive Data This assay detects Chlamydia trachomatis and Neisseria gonorrhoeae by nucleic acid amplification testing (NAAT). This assay has been cleared by the [place] Food and Drug administration. The performance characteristics of this test have been verified by the [facility] laboratory. The performance characteristics of this test have not been evaluated in individuals less than 14 years of age. Current Interpretive Data last revised 2023. Urine 09/19/2024 4:08 PM CDT 09/19/2024 5:02 PM CDT us Susan Evans MD LAB MICROBIOLOGY - GENERAL ORDERABLES Final Result [facility] Department [place] [address] [facility] * Differential, auto (09/19/2024 10:21 AM CDT) Neutrophil abs 4.43 1.50 - 6.50 K/cumm Imm gran abs 0.02 0.00 - 0.10 K/cumm [facility] Lymphocyte abs 3.13 0.80 - 3.30 K/cumm [facility] Monocyte abs 0.68 0.20 - 0.80 K/cumm [facility] Eosinophil abs 0.18 0.00 - 0.50 K/cumm [facility] Basophil abs 0.04 0.00 - 0.10 K/cumm [facility] Neutrophil pct 52.3 % [facility] Comment: Interpretive Data Percent cell count reference ranges are not reported, since discordance with absolute values may lead to misinterpretation of CBC data. Current Interpretive Data was last revised on 2017. Imm gran pct 0.2 % [facility] Comment: Interpretive Data Percent cell count reference ranges are not reported, since discordance with absolute values may lead to misinterpretation of CBC data. Current Interpretive Data was last revised on 2017. Lymphocyte pct 36.9 % [facility] Comment: Interpretive Data Percent cell count reference ranges are not reported, since discordance with absolute values may lead to misinterpretation of CBC data. Current Interpretive Data was last revised on 2017. Monocyte pct 8.0 % [facility] Comment: Interpretive Data Percent cell count reference ranges are not reported, since discordance with absolute values may lead to misinterpretation of CBC data. Current Interpretive Data was last revised on 2017. Eosinophil pct 2.1 % [facility] Comment: Interpretive Data Percent cell count reference ranges are not reported, since discordance with absolute values may lead to misinterpretation of CBC data. Current Interpretive Data was last revised on 2017. Basophil pct 0.5 % [facility] Comment: Interpretive Data Percent cell count reference ranges are not reported, since discordance with absolute values may lead to misinterpretation of CBC data. Current Interpretive Data was last revised on 2017. Blood 09/19/2024 10:2 1 AM CDT 09/19/2024 4:15 PM CDT Susan Evans MD LAB BLOOD ORDERABLES Final Result Performing Organization Address [facility] de Phone Number [facility] [place] [address] * HIV 1/2 Antibody plus p24 Antigen Blood (09/19/2024 10:21 AM CDT) [facility] HIV 1/2 ab + p24 ag Nonreactive Nonreactive Comment:Nonreactive for HIV- 1 antigen and HIV-1/HIV-2 antibodies. No laboratory evidence of HIV infection. If acute HIV infection is suspected, consider testing for HIV-1 RNA. Current interpretive data was last revised on 21. Blood 09/19/2024 10:2 1 AM CDT 09/19/2024 4:15 PM CDT Susan Evans MD LAB MICROBIOLOGY - GENERAL ORDERABLES Final Result Performing Organization Address [facility] de Phone Number [facility] Department [place] [address] * (ABNORMAL) CMV, IgG and IgM antibodies Blood (09/19/2024 10:21 AM CDT) [facility] CMV IgG Positive(A) Negative Comment: Interpretive Data Negative - Individuals with negative CMV IgG results are presumed to not have had prior exposure or infection with CMV and are, therefore, considered susceptible to primary infection. Equivocal - Equivocal results may occur during acute infection or may be due to nonspecific binding reactions. Submit an additional sample for testing if clinically indicated. Positive - Indicates presence of detectable CMV IgG antibody. Results indicate past or recent CMV infection. CMV IgM Negative Negative [facility] Comment: Interpretive Data Negative - Negative CMV IgM results suggests that the patient is not experiencing acute or active infection. However, a negative result does not rule-out primary CMV infection. Equivocal - Equivocal results may occur during acute infection or may be due to nonspecific binding reactions. Submit an additional sample for testing if clinically indicated. Positive - Positive CMV IgM results may indicate a recent infection (primary, reactivation, or reinfection). Blood 09/19/2024 10:2 1 AM CDT 09/19/2024 4:15 PM CDT Susan Evans MD LAB MICROBIOLOGY - GENERAL ORDERABLES Final Result [facility] Department [place] [address] * (ABNORMAL) CBC with auto differential (09/19/2024 10:21 AM CDT) [facility] WBC 8.48 3.80 - 9.90 K/cumm Hgb 12.7 11.9 - 15.5 g/dL [facility] Hct 39.4 35.6 - 45.5 % [facility] Plt 202 150 - 400 K/cumm [facility] MPV 10.5 9.1 - 12.3 fL [facility] RBC 4.53 3.90 - 5.20 M/cumm [facility] MCV 87.0 81.3 - 96.4 fL [facility] MCH 28.0 27.1 - 33.3 pg [facility] MCHC 32.2(L) 32.3 - 35.7 g/dL [facility] RDW CV 12.4 11.1 - 14.9 % [facility] RDW SD 39.4 35.7 - 48.1 fL [facility] NRBC abs 0.00 0.00 - 0.01 K/cumm [facility] Blood 09/19/2024 10:2 1 AM CDT 09/19/2024 4:15 PM CDT Susan Evans MD LAB BLOOD ORDERABLES Final Result Performing Organization Address City/[facility]/ZIP Co de Phone Number [facility] [place] [address] * Hepatitis C antibody Blood (09/19/2024 10:21 AM CDT) [facility] Hep C Ab Nonreactive Nonreactive Comment:Antibodies to HCV no t detected. Does NOT exclude the possibility of recent exposure to HCV. Current interpretive data was last revised on 21 Blood 09/19/2024 10:2 1 AM CDT 09/19/2024 4:15 PM CDT Susan Evans MD LAB MICROBIOLOGY - GENERAL ORDERABLES Final Result Performing Organization Address [facility] Co de Phone Number [facility] [place] [address] * (ABNORMAL) Vitamin D 25 hydroxy (09/19/2024 10:21 AM CDT) Pathologist [facility] Vitamin D 25-OH 25(L) 30 - 80 ng/mL Blood 09/19/2024 10:2 1 AM CDT 09/19/2024 4:15 PM CDT Susan Evans MD LAB BLOOD ORDERABLES Final Result Performing Organization Address [facility] Co de Phone Number [facility] [place] [address] * RPR Blood (09/19/2024 10:21 AM CDT) RPR Nonreactive Nonreactive Blood 09/19/2024 10:2 1 AM CDT 09/19/2024 4:15 PM CDT Susan Evans MD LAB MICROBIOLOGY - GENERAL ORDERABLES Final Result Performing Organization Address [facility] Co de Phone Number [facility] [place] [address] * Hepatitis B Surface Antigen Blood (09/19/2024 10:21 AM CDT) Pathologist [facility] HepBsAg Nonreactive Nonreactive Blood 09/19/2024 10:2 1 AM CDT 09/19/2024 4:15 PM CDT Susan Evans MD LAB MICROBIOLOGY - GENERAL ORDERABLES Final Result Performing Organization Address [facility] de Phone Number [facility] [place] [address] * US Pelvis Complete (09/19/2024 10:16 AM CDT) Pathologist [facility] Cul de Sac No free fluid visualized [facility] Left Antral Follicle Count Antral Follicle Count < 10 mm = 1? [facility] Right Antral Follicle Count Antral Follicle Count < 10 mm = 18 [facility] Endometrial Thickness 4.0 mm&millim eters [facility] Anatomical Region Laterality Modality Pelvis N/A Ultrasound 09/19/2024 10:1 6 AM CDT Impressions 09/19/2024 12:28 PM CDT Normal appearing uterus. Endometrium consistent with early follicular phase. there is a 4cm left cyst, mostly simple in appearance, with a few internal echos. Narrative Procedure Note Susan Evans MD - 09/19/2024 IMPRESSION: Normal appearing uterus. Endometrium consistent with early follicularphase. there is a 4cm left cyst, mostly simple in appearance, with a fewinternal echos. Susan Evans MD IMG US PROCEDURES Final Re sult * Antimullerian hormone (AMH) (09/19/2024 10:03 AM CDT) AMH, ab 2.61 0.89 - 9.85 ng/mL Comment: Interpretive Data Females: 20 - 24 Years 1.22 - 11.7 ng/mL 25 - 29 Years 0.89 - 9.85 ng/mL 30 - 34 Years 0.58 - 8.13 ng/mL 35 - 39 Years 0.15 - 7.49 ng/mL 40 - 44 Years 0.03 - 5.47 ng/mL Current interpretive data was last revised on 2017. Testing performed by: [facility], [address] [place] [address], [place]. [address] [phone] Blood 09/19/2024 10:0 3 AM CDT 09/19/2024 10:40 AM CDT Susan Evans MD LAB BLOOD ORDERABLES Final Result Performing Organization Address [facility]/ZIP Co de Phone Number [facility] [place] [address] * Type and screen (09/19/2024 10:03 AM CDT) ABO Rh A Positive Vijay, indirect Negative [facility] Blood 09/19/2024 10:0 3 AM CDT 09/19/2024 4:34 PM CDT [facility]ative [facility] - 09/19/2024 5:27 PM CDT Has the patient had Daratumumab or Isatuximab in the past 6 months?->Unknown Susan Evans MD LAB BLOOD BANK TEST ORDERA BLES Final Result [facility] [place] [address] * TSH (09/19/2024 10:03 AM CDT) Thyroid Stimulating Hormone 2.19 0.30 - 4.20 mcIUnit/mL Comment:Testing performed by : [facility], [address] [place], [place] [id number] Blood 09/19/2024 10:0 3 AM CDT 09/19/2024 10:40 AM CDT Susan Evans MD LAB BLOOD ORDERABLES Edite d Result - Final Performing Organization Address City/[facility]/ZIP Co de Phone Number [facility] Department [place] [address] * T4, free (09/19/2024 10:03 AM CDT) Free T4 1.26 0.90 - 1.70 ng/dL Comment:Testing performed by : [facility], [address] [place], [place] [id number] Blood 09/19/2024 10:0 3 AM CDT 09/19/2024 10:40 AM CDT Susan Evans MD LAB BLOOD ORDERABLES Final Result Performing Organization Address [facility]/ZIP Co de Phone Number [facility] Department [place] [address] from Last 3 Months Insurance [facility] CHOICE PLUS [facility] CHOICE PLUS Care Teams Repairer General Relationship Specialty Start Date End Date Efren Baugh DO [address] [place] [phone] PCP - General Family Medicine 07/23/24 Alonso Roberts MD [address] [place] [address] Seat Mender Obstetrics and Gynecology 07/23/24
[2024-11-09] MEDS: HYDROcodone/acetaminophen (*CRX) 7.5-325 MG TABLET 1 TAB PO (03:36)
== END 2024-11-09 03:39 | disposition home or self-care (01) ==
LOC: ANHED 03:33
PROVIDERS: Emergency Provider Emergency Medicine; PCP Family Medicine
DX: K08.89 Other specified disorders of teeth and supporting structures (principal)
CPT/HCPCS: 99283; A9270